=== PATIENT | male | born 1950 | race Caucasian/White ===

== ENCOUNTER → 2016-10-27 | Outpatient (CLI) | payer MEDICARE, OTHER ==
[2016-10-27 16:22] LABS: ANION GAP 9 MEQ/L (5-15); BICARBONATE 21.3 MEQ/L (21.0-32.0); BLOOD UREA NITROGEN 25 MG/DL (7-18); CHLORIDE 105 MEQ/L (98-107); GLOMERULAR FILTRATION RATE 37 ML/MIN (>89); GLUCOSE,FASTING 196 MG/DL (74-99); SODIUM (NA) 135 MEQ/L (136-145)
[2016-10-27 16:59] LABS: HEMOGLOBIN A1a 1.1 %; HEMOGLOBIN Ao 81.6 %; HEMOGLOBIN LA1C 2.7 %; HEMOGLOBIN P3 4.3 %
== END ==
LOC: PLAB 12:27
DX: E11.65 Type 2 diabetes mellitus with hyperglycemia (principal)
CPT/HCPCS: 36415; 80048; 83036; 84681

== ENCOUNTER 2017-10-29 08:20 | Emergency (ER) | payer MEDICARE, OTHER ==
[~2017-10-29] VITALS: Ht 177.8 cm; Wt 90.0 kg
[2017-10-29 08:27] VITALS: BP 110/70; PULSE 73; RESP 18; TEMP 98.1; O2SAT 99
[2017-10-29] MEDS ORDERED: SODIUM CHLORIDE 0.9% FLUSH 10 ML FLUSH IVF PRN (08:45)
--- NOTE | 2017-10-29 08:51 | PD ---
HPI Chief Complaint: Fall Time Seen by Provider: 08:31 Travel History International Travel<30 days: No Contact w/Intl Traveler<30days: No Traveled to known affect area: No History of Present Illness HPI Patient 67-year-old male presents emergency department for evaluation of a hematoma to the right lateral leg. Patient has a history of antiphospholipid syndrome and is on low molecular weight heparin as he is history of DVT and thromboembolic strokes. He is followed by Dr. Burns in [facility]. He lives here half the year and then lives in [place] the other half, states he had a mechanical fall last night and this morning had a hematoma develop. He denies any head injury neck injury back injury. Been taking his Fragmin as prescribed. He is concerned because in the past on the same leg he had a hematoma that had to be surgically debrided as it became necrotic. He states the pain is only minimal, no other injuries reported. Symptoms minimal, context as above, associated signs symptoms as above, duration as above. PFSH Past Medical History Medical other: Yes (blood disorder) Tetanus Vaccination: > 5 Years Influenza Vaccination: Yes Past Surgical History Neurologic Surgery: Yes (lamectomy) Tonsillectomy: Yes Other Surgery: Yes (2 surgeries right leg) Social History Alcohol Use: Yes Tobacco Use: No Allergies-Medications (Allergen,Severity, Reaction): Coded Allergies: levofloxacin (Verified Allergy, Severe, 10/29/17) zinc (Verified Allergy, Severe, 10/29/17) Uncoded Allergies: sulfa (Allergy, Severe, 10/29/17) Reported Meds & Prescriptions Reported Meds & Active Scripts Active [place] (Hydrocodone-Acetaminophen) 5 Mg-325 Mg Tab 1 Tab PO Q6H PRN Reported Magnesium Oxide 400 Mg Tab 800 Mg PO DAILY Vitamin C (Ascorbic Acid) 250 Mg Chew 1,000 Mg CHEW DAILY Vitamin B-12 (Cyanocobalamin) 1,000 Mcg Subl 1,000 Mcg SL DAILY Vitamin A (Vitamin A Palmitate) 10,000 Unit Capsule 8,000 Mg Folic Acid 0.4 Mg Tab 1 Mg PO DAILY Fish Oil + D3 (Fish Oil-Cholecalciferol) 1,200-1,000 Mg-Unit Cap 1 Cap PO DAILY Tradjenta (Linagliptin) 5 Mg Tab 5 Mg PO DAILY Prilosec (Omeprazole Magnesium) 20 Mg Tab 40 Mg PO Paxil (Paroxetine HCl) 30 Mg Tab 30 Mg PO DAILY Novolog Flexpen Inj (Insulin Aspart) 300 Unit/3 Ml Pen 1 Units SQ Lantus Solostar Pen Inj (Insulin Glargine) 300 Unit/3 Ml Pen 1 Units SQ Lamictal (Lamotrigine) 200 Mg Tab 200 Mg PO HS Lamictal (Lamotrigine) 150 Mg Tab 150 Mg PO AM Keppra (Levetiracetam) 1,000 Mg Tab 1,000 Mg PO QID Fragmin Inj (Dalteparin Sodium) 18,000 Unit/0.72 Ml Inj 18,000 Units SQ DAILY Flomax (Tamsulosin HCl) 0.4 Mg Cap 0.4 Mg PO HS Finasteride 5 Mg Tab 5 Mg DAILY Do not crush. Atorvastatin (Atorvastatin Calcium) 10 Mg Tab 10 Mg PO HS Atenolol 25 Mg Tab 25 Mg PO DAILY Aspirin 81 Mg Chew 81 Mg CHEW DAILY Review of Systems Except as stated in HPI: all other systems reviewed are Neg Physical Exam Narrative GENERAL: Well-nourished, well-developed patient. SKIN: Focused skin assessment warm/dry. There is a golf ball sized hematoma on the anterior lateral aspect of the right tibia. There is no surrounding erythema, no color change in skin. There is chronic skin changes medial to the hematoma with postsurgical changes which is well-healed. Patient states this is from his large hematoma before. HEAD: Normocephalic. EYES: No scleral icterus. No injection or drainage. NECK: Supple, trachea midline. No JVD or lymphadenopathy. CARDIOVASCULAR: Regular rate and rhythm without murmurs, gallops, or rubs. RESPIRATORY: Breath sounds equal bilaterally. No accessory muscle use. GASTROINTESTINAL: Abdomen soft, non-tender, nondistended. MUSCULOSKELETAL: No cyanosis, or edema. Pulse motor and sensory intact distally in all 4 extremities, compartments are soft. BACK: Nontender without obvious deformity. No CVA tenderness. Data Data Last Documented VS Vital Signs Date Time Temp Pulse Resp B/P (MAP) Pulse Ox O2 Delivery O2 Flow Rate FiO2 10/29/17 08:27 98.1 73 18 110/70 (83) 99 Orders Orders Tibia/Fibula (Ap/Lat) (10/29/17 ) Complete Blood Count With Diff (10/29/17 08:45) Comprehensive Metabolic Panel (10/29/17 08:45) Prothrombin Time / Inr (Pt) (10/29/17 08:45) Act Partial Throm Time (Ptt) (10/29/17 08:45) Iv Access Insert/Monitor (10/29/17 08:45) Sodium Chloride 0.9% Flush (Ns Flush) (10/29/17 08:45) Corey Bandage (10/29/17 09:58) Ed Discharge Order (10/29/17 09:58) Acetamin-Hydrocod 325-5 Mg ([place] 5-325 (10/29/17 10:15) Labs Laboratory Tests Test 10/29/17 08:51 White Blood Count 7.0 TH/MM3 Red Blood Count 4.47 MIL/MM3 Hemoglobin 13.6 GM/DL Hematocrit 39.1 % Mean Corpuscular Volume 87.5 FL Mean Corpuscular Hemoglobin 30.4 PG Mean Corpuscular Hemoglobin Concent 34.7 % Red Cell Distribution Width 14.0 % Platelet Count 186 TH/MM3 Mean Platelet Volume 9.1 FL Neutrophils (%) (Auto) 72.0 % Lymphocytes (%) (Auto) 15.0 % Monocytes (%) (Auto) 6.8 % Eosinophils (%) (Auto) 5.1 % Basophils (%) (Auto) 1.1 % Neutrophils # (Auto) 5.0 TH/MM3 Lymphocytes # (Auto) 1.1 TH/MM3 Monocytes # (Auto) 0.5 TH/MM3 Eosinophils # (Auto) 0.4 TH/MM3 Basophils # (Auto) 0.1 TH/MM3 CBC Comment DIFF FINAL Differential Comment Prothrombin Time 10.5 SEC Prothromb Time International Ratio 1.0 RATIO Activated Partial Thromboplast Time 33.1 SEC Blood Urea Nitrogen 22 MG/DL Creatinine 1.64 MG/DL Random Glucose 160 MG/DL Total Protein 7.3 GM/DL Albumin 3.5 GM/DL Calcium Level 9.6 MG/DL Alkaline Phosphatase 44 U/L Aspartate Amino Transf (AST/SGOT) 27 U/L Alanine Aminotransferase (ALT/SGPT) 51 U/L Total Bilirubin 0.4 MG/DL Sodium Level 140 MEQ/L Potassium Level 4.7 MEQ/L Chloride Level 108 MEQ/L Carbon Dioxide Level 22.9 MEQ/L Anion Gap 9 MEQ/L Estimat Glomerular Filtration Rate 42 ML/MIN MDM Medical Decision Making Medical Screen Exam Complete: Yes Emergency Medical Condition: Yes Differential Diagnosis Hematoma, compartment syndrome excluded clinically, anticoagulated, thrombocytopenia. Narrative Course Patient room to the emergency department, he appears well in obvious distress. Obviously the concern is that the last time he had a hematoma in this position it turned necrotic and ultimately had to be cut, this was much of this may have his supervisor filtration oncologist in [place]. The patient's platelet count is normal , he does have a mildly elevated PTT were consistent with Fragmin use. This seems to be the only complication associated with his hematoma currently. The hematoma does not appear infected, is no evidence of compartment syndrome, it is not rapidly expanding. At this time the patient is amenable to symptomatic management and follow-up with his primary care physician or the supervisor filtration Dr. Burns and he follows with. The patient fairly insistent that I speak with a supervisor filtration today, I discussed with Dr. Purcell the who is partner to Dr. Burns and he agrees based on everything I presented to himself far. Discussed signs symptoms of compartment syndrome and worsening hematoma that should prompt return to the ER. At this time he is stable for discharge Diagnosis Primary Impression: Hematoma of leg Patient Instructions: General Instructions, Hematoma (ED), RICE Therapy (GEN) Med/Other Pt SpecificInfo: Prescription(s) given Scripts Hydrocodone-Acetaminophen ([place]) 5 Mg-325 Mg Tab 1 TAB PO Q6H Y for PAIN, #10 TAB 0 Refills Prov: Chang Camacho MD 10/29/17 Disposition: 01 DISCHARGE HOME Condition: Stable Chang Camacho MD Oct 29, 2017 08:51
[2017-10-29] MEDS ORDERED: ASPI-516 CHEW (08:54)
[2017-10-29] MEDS ORDERED: PRIL20TA2 PO (08:54)
[2017-10-29] MEDS ORDERED: LANTINJ SQ (08:54)
[2017-10-29] MEDS ORDERED: VITA100021 SL (08:54)
[2017-10-29] MEDS ORDERED: FOLI400T PO (08:54)
[2017-10-29] MEDS ORDERED: KEPP10002 PO (08:54)
[2017-10-29] MEDS ORDERED: ATEN25TA PO (08:54)
[2017-10-29] MEDS ORDERED: VITA250C3 CHEW (08:54)
[2017-10-29] MEDS ORDERED: FISHCAP4 PO (08:54)
[2017-10-29] MEDS ORDERED: LAMO150 PO (08:54)
[2017-10-29] MEDS ORDERED: PAXI30TA7 PO (08:54)
[2017-10-29] MEDS ORDERED: NOVOINJ3 SQ (08:54)
[2017-10-29] MEDS ORDERED: TRAD5TAB PO (08:54)
[2017-10-29] MEDS ORDERED: TAMS5CAP PO (08:54)
[2017-10-29] MEDS ORDERED: [UNRECOGNIZED DRUG - CODE] SQ (08:54)
[2017-10-29] MEDS ORDERED: ATOR10TA15 PO (08:54)
[2017-10-29] MEDS ORDERED: VITA1CAP7 (08:54)
[2017-10-29] MEDS ORDERED: FINA5TAB2 (08:54)
[2017-10-29] MEDS ORDERED: MAGN400T2 PO (08:54)
[2017-10-29] MEDS ORDERED: LAMI200T PO (08:54)
[2017-10-29 09:01] LABS: BASOPHIL # 0.1 TH/MM3 (0-0.2); BASOPHIL % 1.1 % (0.0-2.0); EOSINOPHIL # 0.4 TH/MM3 (0-0.4); EOSINOPHIL % 5.1 % (0.0-4.0); HEMATOCRIT 39.1 % (39.0-51.0); HEMOGLOBIN 13.6 GM/DL (13.0-17.0); LYMPHOCYTE # 1.1 TH/MM3 (1.0-4.8); MEAN CELL VOLUME 87.5 FL (80.0-100.0); MEAN CORPUSCULAR HEMOGLOBIN 30.4 PG (27.0-34.0); MEAN CORPUSCULAR HGB CONC 34.7 % (32.0-36.0); MEAN PLATELET VOLUME 9.1 FL (7.0-11.0); MONO % 6.8 % (0.0-8.0); MONOCYTE # 0.5 TH/MM3 (0-0.9); PLATELET COUNT 186 TH/MM3 (150-450); RED BLOOD COUNT 4.47 MIL/MM3 (4.50-5.90)
--- NOTE | 2017-10-29 09:06 | RADRPT ---
EXAM DATE/TIME: 10/29/2017 08:57 [facility] COMPARISON: No previous studies available for comparison. INDICATIONS : Right lateral tibia pain, fell MEDICAL HISTORY : None. SURGICAL HISTORY : None. ENCOUNTER: Initial ACUITY: 2 days PAIN SCORE: 7/10 LOCATION: Right Tibia FINDINGS: Multiple views of the right tibia and fibula were obtained and demonstrate no evidence of acute fract ure or malalignment. There is mild osteopenia. There is focal soft tissue swelling over the lateral p roximal leg with and ill-defined high density mass like area in the subcutaneous tissue measuring up to 4.1 x 2.7 cm in diameter consistent with a hematoma. Degenerative changes are present in the knee with joint space loss, sclerosis and chondrocalcinosis. There are mild degenerative changes also note d in the ankle. CONCLUSION: 1. Osteopenia with no acute fracture or malalignment. 2. Focal soft tissue swelling and hematoma in the subcutaneous fat along the proximal lateral fibula. 3. Degenerative changes in the knee and ankle. Jono Samuels MD on October 29, 2017 at 9:02 Board Certified Radiologist. This report was verified electronically.
[2017-10-29 09:10] LABS: PROTHROMBIN TIME - PATIENT 10.5 SEC (9.8-11.6)
[2017-10-29 09:17] LABS: ALT (GPT) 51 U/L (12-78)
[2017-10-29 09:20] LABS: ALKALINE PHOSPHATASE 44 U/L (45-117); TOTAL BILIRUBIN ADULT 0.4 MG/DL (0.2-1.0); TOTAL PROTEIN 7.3 GM/DL (6.4-8.2)
[2017-10-29 09:23] LABS: ALBUMIN 3.5 GM/DL (3.4-5.0); AST (GOT) 27 U/L (15-37); BICARBONATE 22.9 MEQ/L (21.0-32.0); BLOOD UREA NITROGEN 22 MG/DL (7-18); CALCIUM 9.6 MG/DL (8.5-10.1); CHLORIDE 108 MEQ/L (98-107); CREATININE 1.64 MG/DL (0.60-1.30); GLOMERULAR FILTRATION RATE 42 ML/MIN (>89); GLUCOSE,RANDOM 160 MG/DL (74-106); SODIUM (NA) 140 MEQ/L (136-145)
[2017-10-29] MEDS ORDERED: NORC5TAB PO (10:08)
[2017-10-29] MEDS ORDERED: ACETAMINOPHEN/HYDROcodone 325 MG/5 MG TAB PO ONE (10:15)
== END 2017-10-29 10:48 | disposition home or self-care (01) ==
LOC: NEPC 08:20
DX: S80.11XA Contusion of right lower leg, initial encounter (principal); D68.61 Antiphospholipid syndrome; W19.XXXA Unspecified fall, initial encounter; Z86.73 Personal history of transient ischemic attack (TIA), and cerebral infarction without residual deficits; Z86.718 Personal history of other venous thrombosis and embolism
CPT/HCPCS: 73590; 80053; 85025; 85610; 85730; 99284